=== PATIENT | female | born 1985 | race Caucasian/White ===

== ENCOUNTER 2017-11-13 17:56 | Emergency (ER) | payer MEDICAID ==
[2017-11-13 17:57] VITALS: BMI 27.4
[2017-11-13 18:23] VITALS: RESP 16
--- NOTE | 2017-11-13 19:00 | ED PDOC ---
Arrival/HPI - General Chief Complaint: Female Genitourinary Time Seen by Provider: 11/13/17 18:34 Historian: Patient - History of Present Illness Narrative History of Present Illness (Text): 11/13/17 18:55 32yo female with PMHx of Thrombocytopenia present with complaint of suprapubic pain, burning with urination, urinary frequency x 3days. Notes that she had left lank pain with vomiting x 2 earlier today. The flank pain resolved, but she is still having urinary frequency and dysuria. She saw Dr. Florentino today and was given rx of Levaquin and Zofran. She present with a note from Dr. Florentino for Rocephin and Zofran. She denies fever, chills, back pain, hematuria, diarrhea, constipation, any other complaint. Past Medical History - Provider Review Nursing Documentation Reviewed: Yes - Cardiac Hx Cardiac Disorders: No - Pulmonary Hx Respiratory Disorders: No - Neurological Hx Neurological Disorder: No - HEENT Hx HEENT Disorder: No - Renal Hx Renal Disorder: No - Endocrine/Metabolic Hx Endocrine Disorders: No - Hematological/Oncological Hx Blood Disorders: Yes Other/Comment: low platlets - Integumentary Hx Dermatological Disorder: No - Musculoskeletal/Rheumatological Hx Musculoskeletal Disorders: No - Gastrointestinal Hx Gastrointestinal Disorders: No - Genitourinary/Gynecological Hx Genitourinary Disorders: No - Psychiatric Hx Psychophysiologic Disorder: No Hx Substance Use: No - Surgical History Hx Section: Yes Family/Social History - Physician Review Nursing Documentation Reviewed: Yes Family/Social History: Unknown Family HX Smoking Status: Never Smoked Hx Alcohol Use: No Hx Substance Use: No Allergies/Home Meds Allergies/Adverse Reactions: Allergies No Known Allergies Allergy (Verified 11/13/17 18:17) Home Medications: Home Meds Medication Instructions Recorded Confirmed predniSONE [predniSONE Tab] 5 mg PO DAILY 11/13/17 11/13/17 Review of Systems - Physician Review All systems were reviewed & negative as marked: Yes - Review of Systems Constitutional: Normal Eyes: Normal ENT: Normal Respiratory: Normal Cardiovascular: Normal Gastrointestinal: Abdominal Pain, Nausea, Vomiting. absent: Constipation, Diarrhea, Hematemesis Genitourinary Female: Dysuria, Frequency. absent: Hematuria Musculoskeletal: Normal Skin: Normal Neurological: Normal Endocrine: Normal Hemo/Lymphatic: Normal Psychiatric: Normal Physical Exam Vital Signs Reviewed: Yes Vital Signs Temp Pulse Resp BP Pulse Ox 11/13/17 20:56 98.4 F 90 16 128/73 98 11/13/17 20:50 98.4 F 90 16 128/73 98 11/13/17 18:18 98.6 F 93 H 16 123/81 99 Temperature: Afebrile Blood Pressure: Normal Pulse: Regular Respiratory Rate: Normal Appearance: Positive for: Well-Appearing, Non-Toxic, Comfortable Pain Distress: None Mental Status: Positive for: Alert and Oriented X 3 - Systems Exam Head: Present: Atraumatic, Normocephalic Pupils: Present: PERRL Extroacular Muscles: Present: EOMI Conjunctiva: Present: Normal Mouth: Present: Moist Mucous Membranes Neck: Present: Normal Range of Motion Respiratory/Chest: Present: Clear to Auscultation, Good Air Exchange. No: Respiratory Distress, Accessory Muscle Use Cardiovascular: Present: Regular Rate and Rhythm, Normal S1, S2. No: Murmurs Abdomen: No: Tenderness, Distention, Peritoneal Signs, Rebound, Guarding, McBurney's Point Tender, Rovsing's Sign Present Back: No: CVA Tenderness Upper Extremity: Present: Normal Inspection. No: Cyanosis, Edema Lower Extremity: Present: Normal Inspection. No: Edema Neurological: Present: GCS=15, CN II-XII Intact, Speech Normal Skin: Present: Warm, Dry, Normal Color. No: Rashes Psychiatric: Present: Alert, Oriented x 3, Normal Insight, Normal Concentration Medical Decision Making ED Course and Treatment: 11/13/17 20:24 PT in ED for stated history. She was afebrile and had no CVAT b/l. UA - Large blood. No Leukocyte/Nitrite Dr. Florentino requested Rocephin and Zofran to be given in ED and it was given. She have [place] [facility] [place]/Pelvic CT was ordered to r/o kidney stone. Case was DW Dr. florentino. He states he will f/u on the CT. Advised that pt take her levaquin as was directed. Result and plan was DW the pt. She was advised to f/u with Dr. Florentino - Lab Interpretations Microbiology Results: Microbiology Results 11/13/17 18:55 Urine Urine Culture - Final No Growth (<1,000 CFU/ML) Lab Results: Lab Results 11/13/17 18:55: Urine Color Yellow, Urine Appearance Clear, Urine pH 6.0, Ur Specific [place] >= 1.030, Urine Protein Trace H, Urine Glucose (UA) Negative, Urine Ketones Trace H, Urine Blood Large H, Urine Nitrate Negative, Urine Bilirubin Negative, Urine Urobilinogen 0.2, Ur Leukocyte Esterase Negative, Urine RBC 20 - 25, Urine WBC 2 - 5, Ur Epithelial Cells 1 - 3 - RAD Interpretation Radiology Orders: 11/13/17 19:48 ABD & PELVIS W/O PO OR IV CONT [CT] Stat - Medication Orders Current Medication Orders: Discontinued Medications Ceftriaxone Sodium (Rocephin) 1 gm IM STAT STA PRN Reason: Protocol Stop: 11/13/17 18:54 Last Admin: 11/13/17 19:43 Dose: 1 gm IM Administration Charges Document 11/13/17 19:43 RG (Rec: 11/13/17 19:44 RG [id number]) Injection Site MAR Injection Site Left Gluteus Medius Charges for Administration # of IM Administrations 1 Ondansetron HCl (Zofran Odt) 4 mg PO STAT STA Stop: 11/13/17 18:54 Last Admin: 11/13/17 19:16 Dose: 4 mg Disposition/Present on Arrival - Present on Arrival Any Indicators Present on Arrival: No History of DVT/PE: No History of Uncontrolled Diabetes: No Urinary Catheter: No History of Decub. Ulcer: No History Surgical Site Infection Following: None - Disposition Have Diagnosis and Disposition been Completed?: Yes Diagnosis: UTI (urinary tract infection), Hematuria Disposition: HOME/ ROUTINE Disposition Time: 20:50 Patient Plan: Discharge Condition: STABLE Discharge Instructions (ExitCare): Urinary Tract Infections in Adults, Blood in the Urine (Hematuria), Adult (DC) Additional Instructions: Drink plenty of fluid and follow up with Dr. Florentino Return to ED for any new or worsening symptoms Referrals: Corey Florentino MD [Primary Care Provider] - Follow up with primary Forms: [employer] (Korean)
[2017-11-13 19:11] LABS: URINE BILIRUBIN NEGATIVE (NEGATIVE); URINE BLOOD LARGE (NEGATIVE); URINE GLUCOSE (UA) NEGATIVE (NEGATIVE); URINE LEUKOCYTE ESTERASE NEGATIVE Leu/uL (NEGATIVE); URINE PROTEIN TRACE mg/dL (<30 mg/dL); URINE UROBILINOGEN 0.2 E.U./dL (<1 E.U./dL)
[2017-11-13 19:14] LABS: URINE COLOR YELLOW (YELLOW)
[2017-11-13 19:15] LABS: URINE APPEARANCE CLEAR (CLEAR)
[2017-11-13 19:19] LABS: URINE RBC 20 - 25 /hpf (0-2)
[2017-11-13] MEDS: cefTRIAXone (Rocephin) 1 gm Inj IM STA ×2 (19:20→19:43)
[2017-11-13 21:05] VITALS: BP 128/73; PULSE 90; TEMP 98.4; O2SAT 98
--- NOTE | 2017-11-13 21:58 | CT ---
EXAM: CT Abdomen and Pelvis Without Intravenous Contrast CLINICAL HISTORY: 32 years old, female; Pain; Abdominal pain; Acute; Additional info: Left flank pain TECHNIQUE: Axial computed tomography images of the abdomen and pelvis without intravenous contrast. All CT scans at this facility use one or more dose reduction techniques, viz.: automated exposure control; ma/kV adjustment per patient size (including targeted exams where dose is matched to indication; i.e. head); or iterative reconstruction technique. Coronal and sagittal reformatted images were created and reviewed. COMPARISON: No relevant prior studies available. FINDINGS: Limitations: Lack of intravenous contrast. Motion artifact - mild. Lung bases: No acute findings. Mediastinum: Small hiatal hernia. ABDOMEN: Liver: Unremarkable. Gallbladder and bile ducts: No calcified stones. No ductal dilation. Pancreas: Unremarkable. No ductal dilation. Spleen: No splenomegaly. Adrenals: No mass. Kidneys and ureters: Punctate calculus within RIGHT kidney. No hydronephrosis. Minimal asymmetric prominence of LEFT ureter. Apparent minimal haziness about left distal ureter. Stomach and bowel: No definite mural thickening. No obstruction. PELVIS: Appendix: Normal caliber. No inflammation. Bladder: Unremarkable. No stones. Reproductive: Unremarkable as visualized. ABDOMEN and PELVIS: Intraperitoneal space: No significant fluid collection. No free air. Bones/joints: No acute fracture. Soft tissues: Tiny umbilical hernia containing fat. Vasculature: Unremarkable. No aneurysm. Lymph nodes: No pathologically enlarged lymph nodes. IMPRESSION: 1. Minimal prominence of left ureter. Correlate with urinalysis to exclude infection. 2. Nonobstructing right renal calculus. 3. Incidental/non-acute findings are described above.
== END 2017-11-13 20:56 | disposition home or self-care (01) ==
LOC: ED 17:56
DX: N39.0 Urinary tract infection, site not specified (principal); R31.9 Hematuria, unspecified
CPT/HCPCS: 74176; 81001; 87086; 96372; 99283; J0696